=== PATIENT | male | born 1985 ===

== ENCOUNTER 2020-04-20 10:00 | Emergency (ER) | payer OTHER ==
[~2020-04-20] VITALS: Ht 167.6 cm; Wt 65.8 kg
[2020-04-20] MEDS ORDERED: IBUP800 PO (11:11)
== END 2020-04-20 12:16 | disposition home or self-care (01) ==
LOC: ER 10:00
DX: S50.12XA Contusion of left forearm, initial encounter (principal); S30.810A Abrasion of lower back and pelvis, initial encounter; F17.210 Nicotine dependence, cigarettes, uncomplicated; W17.81XA Fall down embankment (hill), initial encounter
CPT/HCPCS: 73090; 73502; 96374; 99284-25; J1885